=== PATIENT | male | born 1985 | race Caucasian/White ===

== ENCOUNTER 2018-06-24 21:20 | Emergency (ER) | payer MEDICAID ==
[~2018-06-24] VITALS: Ht 172.7 cm; Wt 65.8 kg
[2018-06-24 22:30] LABS: HEMATOCRIT 41.8 % (42.0-52.0); MEAN CELL VOLUME 85.3 fl (80.0-94.0); MEAN CORPUSCULAR HGB 28.6 pg (27.0-31.0); MEAN CORPUSCULAR HGB CONC 33.5 g/dl (33.0-37.0); MEAN PLATELET VOLUME 11.2 fl (9.6-12.3); PLATELET COUNT AUTOMATED 98 10*3/uL (130-400); RED CELL DISTRI WIDTH 12.3 % (0-14.5); WHITE BLOOD COUNT 4.1 10*3/uL (4.8-10.8)
[2018-06-24 22:37] LABS: BILIRUBIN NEGATIVE (NEGATIVE); BLOOD 2+ (NEGATIVE); CLARITY SL CLOUDY (CLEAR); COLOR YELLOW (YELLOW); GLUCOSE NEGATIVE (NEGATIVE); KETONE NEGATIVE (NEGATIVE); LEUKO ESTERASE NEGATIVE (NEGATIVE); NITRITE NEGATIVE (NEGATIVE); PH 5.5 (5.0-9.0)
[2018-06-24 22:45] LABS: ALBUMIN 3.9 gm/dl (3.1-4.5); ALKALINE PHOSPHATASE 86 U/L (45-117); BUN 10 mg/dl (7-24); CHLORIDE 100 mmol/L (98-107); CREATININE 1.29 mg/dL (0.70-1.30); SGOT/AST 67 IU/L (3-35); SGPT/ALT 57 U/L (12-78); SODIUM 137 mmol/L (136-145); TOTAL PROTEIN 7.2 gm/dL (6.4-8.2)
[2018-06-24 22:54] LABS: ATYPICAL LYMPHS 3 % (0-0); PLATELET SUFFICIENCY LOW (NORMAL); TOTAL CELLS COUNTED 100 #CELLS
[2018-06-24 23:13] LABS: BACTERIA 2+
[2018-06-24] MEDS ORDERED: CIPRO500 MG PO (23:26)
== END 2018-06-24 23:38 | disposition home or self-care (01) ==
LOC: ED 21:20
PROVIDERS: Physician Assistant
DX: N39.0 Urinary tract infection, site not specified (principal); R05 Cough; R50.9 Fever, unspecified; R52 Pain, unspecified